=== PATIENT | male | born 1975 | race African-American/Black ===

== ENCOUNTER 2022-07-24 17:26 | Emergency (ER) | payer OTHER, SELFPAY ==
[2022-07-24 17:38] VITALS: BP 130/82; PULSE 94; RESP 16; TEMP 36.8; O2SAT 100
--- NOTE | 2022-07-24 17:40 | ED.BACK ---
HPI - Back Pain/Injury General Chief Complaint: Back Pain/Injury Stated Complaint: Low back injury Time Seen by Provider: 07/24/22 17:41 Source: patient and RN notes reviewed Mode of arrival: ambulatory Limitations: no limitations History of Present Illness HPI Narrative: 46-year-old male presents with concern for right hip pain. He reports approximately 2 weeks ago he was lifting some heavy at work when he went to an awkward position and felt a pain in the hip. He reports he did not fall or have any blunt trauma. He reports since then he has had intermittent hip pain, he has been taking Aleve twice daily, using muscle rubs and pain patches. He denies bowel or bladder problems, abdominal pain, perianal anesthesia. He denies bruising, swelling, warmth, redness, open skin. He reports he can find positions of comfort, pain increases with weightbearing. MD elicited complaint: other (hip pain) Related Data Home Medications Medication Instructions Recorded Confirmed atorvastatin 20 mg tablet 20 mg PO DAILY 07/24/22 07/24/22 dapagliflozin 5 mg-metformin ER 1 tablet PO DAILY 07/24/22 07/24/22 1,000 mg tablet,extended release 24hr (Xigduo XR) ergocalciferol (vitamin D2) 1,250 1,250 mcg PO DAILY 07/24/22 07/24/22 mcg (50,000 unit) capsule phentermine 37.5 mg tablet 37.5 mg PO DAILY 07/24/22 07/24/22 Allergies Allergy/AdvReac Type Severity Reaction Status Date / Time No Known Allergies Allergy Verified 07/24/22 17:41 Review of Systems Review of Systems: CONSTITUTIONAL: Denies malaise, chills, sweats, or fever. CARDIOVASCULAR: Denies chest pain, palpitations, or edema. RESPIRATORY: Denies cough or dyspnea. GASTROINTESTINAL: Denies abdominal pain, nausea, vomiting, diarrhea, loss of bowel function GENITOURINARY: Denies dysuria, hematuria, frequency, loss of bladder function. SKIN: Denies rash or itching. MUSCULOSKELETAL: Reports low back pain NEUROLOGIC: Denies numbness, weakness, or headache. All systems reviewed & are unremarkable except as noted in HPI and below PMFSH Comments At time of signature, agree with nursing past medical, surgical, social and family history. There is no relevant family history pertinent to the presenting complaint Exam Narrative: GENERAL: Well-appearing, well-nourished, and in no acute distress. HEAD: Normocephalic, atraumatic. EYES: PERRLA and EOMI. NECK: Supple. No lymphadenopathy. CHEST: Clear to auscultation. No respiratory distress. HEART: Regular rate and rhythm. Distal pulses palpable and equal, cap refill <3 seconds MUSCULOSKELETAL: Normal range of motion in bilateral lower extremities; 5/5 strength with hip flexion and extension, dorsiflexion and extension, knee flexion and extension. No hip tenderness. Normal gait SKIN: Warm, dry, no rash. NEURO: No focal deficits. Alert and oriented x3. Reflexes intact. Normal gait. PSYCH: Normal mood and affect Course Course Emergency Course: Patient is aware of diagnosis, understands and agrees to treatment plan. Anticipatory guidance given. Patient agrees to follow-up as directed and is aware of reasons to seek care at the emergency department. Portions of this record may have been created with voice recognition software Level of Care: Express Care Visit Vital Signs Vital signs: Vital Signs Temperature 98.2 F 07/24/22 17:38 Pulse Rate 94 07/24/22 17:38 Respiratory Rate 16 07/24/22 17:38 Blood Pressure 130/82 07/24/22 17:38 Pulse Oximetry 100 07/24/22 17:38 Oxygen Delivery Room Air 07/24/22 17:38 Temperature 98.2 F 07/24/22 17:38 Pulse Rate 94 07/24/22 17:38 Respiratory Rate 16 07/24/22 17:38 Blood Pressure 130/82 07/24/22 17:38 Pulse Oximetry 100 07/24/22 17:38 Oxygen Delivery Room Air 07/24/22 17:38 Reviewed. MDM - Back Pain/Injury MDM Narrative Medical decision making narrative: Patients injury and pain is consistent with musculoskeletal etiology. No signs of neurological
== END 2022-07-24 17:56 | disposition home or self-care (01) ==
PROVIDERS: Emergency Provider Nurse Practitioner; PCP Family Medicine
DX: S76.011A Strain of muscle, fascia and tendon of right hip, initial encounter (principal); X50.9XXA Other and unspecified overexertion or strenuous movements or postures, initial encounter; Y99.0 Civilian activity done for income or pay; M19.90 Unspecified osteoarthritis, unspecified site; E11.9 Type 2 diabetes mellitus without complications
CPT/HCPCS: 99213; G0463